=== PATIENT | female | born 1940 | race Caucasian/White ===

== ENCOUNTER 2022-12-08 15:08 | Emergency (ER) | payer OTHER ==
[~2022-12-08] VITALS: Ht 157.5 cm; Wt 61.7 kg
--- NOTE | 2022-12-08 15:33 | NUR ---
LYNSEY JOHN at the bedside.
[2022-12-08] MEDS ORDERED: ACETAMINOPHEN ES 500 MG TABLET ONE (15:53)
[2022-12-08] MEDS ORDERED: CYCLOBENZAPRINE HCL 10 MG TABLET ONE (15:53)
[2022-12-08] MEDS ORDERED: CYCLOBENZAPRINE HCL 10 MG TABLET PO ONE (16:00)
[2022-12-08] MEDS ORDERED: ACETAMINOPHEN ES 500 MG TABLET PO ONE (16:00)
[2022-12-08] MEDS ORDERED: predniSONE 50 MG TABLET ONE (16:56)
[2022-12-08] MEDS ORDERED: GABAPENTIN 100 MG CAPSULE ONE (16:56)
[2022-12-08] MEDS ORDERED: predniSONE 10 MG TABLET ONE (16:56)
[2022-12-08] MEDS ORDERED: GABAPENTIN 100 MG CAPSULE PO ONE (17:00)
[2022-12-08] MEDS ORDERED: predniSONE 20 MG TABLET PO ONE (17:00)
--- NOTE | 2022-12-08 17:50 | NUR ---
Pt resting in bed, states her neck pain is decreased.
[2022-12-08] MEDS ORDERED: PRED20TA PO (17:54)
--- NOTE | 2022-12-08 18:10 | NUR ---
Pt able to sit and dangle her leg, but unsteady when standing and walking.
--- NOTE | 2022-12-08 18:10 | NUR ---
Dr Solano made aware of pt's gait.
--- NOTE | 2022-12-08 18:15 | NUR ---
Pt called her sisster Jacque to pick her up and also bring a walker for her. ETA 1 hour.
--- NOTE | 2022-12-08 18:56 | NUR ---
Patient discharged to home in stable condition. Written and verbal after care instructions given. Patient verbalizes understanding of instructions. Stressed follow up or return to ER for worsening s/s. PT assissted to the car w/ wheelchair accompained by family.
[2022-12-08 18:58] VITALS: BP 144/60
== END 2022-12-08 18:59 | disposition home or self-care (01) ==
LOC: ER 15:08
DX: M54.12 Radiculopathy, cervical region (principal); Z88.2 Allergy status to sulfonamides; Z88.8 Allergy status to other drugs, medicaments and biological substances; Z79.899 Other long term (current) drug therapy
CPT/HCPCS: 99284; J7512 ×2; A4663; A9150